=== PATIENT | male | born 1995 | race Caucasian/White ===

== ENCOUNTER 2017-05-24 10:35 | Day surgery (SDC) | payer BC ==
[2017-05-24] VITALS (8 sets, daily range): BP systolic 124–145; BP diastolic 58–82; PULSE 61–87; TEMP 97.9–99.5
[~2017-05-24] VITALS: Ht 182.9 cm; Wt 96.0 kg
[~2017-05-24 10:35] MED LIST: UNABLE
[2017-05-24] MEDS ORDERED: ROXICODONE 55 MG/TAB PO (16:07)
== END 2017-05-24 17:30 | disposition home or self-care (01) ==
LOC: SDCO 10:35
DX: K40.20 Bilateral inguinal hernia, without obstruction or gangrene, not specified as recurrent (principal)
CPT/HCPCS: A4314; C1781; J1100; J1885; J2270; J2405; J2704; J3010; J7120